=== PATIENT | male | born 1950 | race Caucasian/White ===

== ENCOUNTER → 2018-03-05 07:21 | Outpatient (CLI) | payer MEDICARE, SELFPAY ==
[2018-03-05 08:40] LABS: Alanine Aminotransferase 23 U/L (12-78); Albumin Level 3.7 gm/dL (3.4-5.0); Albumin/Globulin Ratio 1.1 (1.1-1.8); Alkaline Phosphatase 117 U/L (46-116); Anion Gap 12.6 mEq/L (5-15); Aspartate Amino Transferase 17 U/L (15-37); Bilirubin,Total 0.4 mg/dL (0.2-1.0); Blood Urea Nitrogen 12 mg/dL (7-18); Calcium 8.9 mg/dL (8.5-10.1); Carbon Dioxide 30 mmol/L (21.0-32.0); Chloride 105 mmol/L (98-107); Chol/HDL Ratio 6.8 (1-3.5); Cholesterol 177 mg/dL (140-200); Creatinine,Serum 1.07 mg/dL (0.70-1.30); Estimated Glomerular Filt Rate 69 ml/min (>60); GFR (African American) 84 ML/MIN (>60); Globulin 3.4 gm/dl (1.3-3.2); Glucose 107 mg/dL (74-106); HDL Cholesterol 26 mg/dL (27-67); LDL Cholesterol 130 mg/dL (0-130); Potassium 4.6 mmoL/L (3.5-5.1); Prostate Specific Ag, Diagnost 1.95 ng/mL (0.0-4.0); Sodium 143 mmol/L (136-145); Total Protein,Serum 7.1 gm/dL (6.4-8.2); Triglycerides 107 mg/dL (30-200); VLDL Cholesterol 21 mg/dL (0-40)
== END ==
PROVIDERS: Visit Provider Internal Medicine
DX: I10 Essential (primary) hypertension (principal); E78.5 Hyperlipidemia, unspecified; I25.10 Atherosclerotic heart disease of native coronary artery without angina pectoris; R39.12 Poor urinary stream
CPT/HCPCS: 36415; 80053; 80061; 84153

== ENCOUNTER → 2019-02-10 09:57 | Outpatient (CLI) | payer MEDICARE, SELFPAY ==
--- NOTE | 2019-02-10 10:03 | XR_ITS ---
XR chest 2V HISTORY: Hemoptysis, COPD, smoker ITS.REASON: HYMOPTYSIS, COPD ORDERING PHYSICIAN: Jackson Hodges PATIENT AGE: 68 years COMPARISON: None FINDINGS: There has been a prior CABG. There is cardiomegaly without failure. There is a left hilar mass which measures 5.8 x 4.9 x 5.9 cm in the left anterior perihilar region. This is highly suspicious for neoplasm. Chest CT with contrast suggested for further evaluation. Right lung is clear. No acute bony findings. IMPRESSION: 6 cm left perihilar mass suspicious for neoplasm. Recommend chest CT with contrast for further evaluation
== END ==
PROVIDERS: PCP Internal Medicine; Visit Provider Internal Medicine
DX: R04.2 Hemoptysis (principal)
CPT/HCPCS: 71046

== ENCOUNTER → 2019-02-15 08:30 | Outpatient (CLI) | payer MEDICARE, SELFPAY ==
[2019-02-15 08:54] LABS: Blood Urea Nitrogen 13 mg/dL (7-18); Estimated Glomerular Filt Rate 61 ml/min (>60); GFR (African American) 73 ML/MIN (>60)
--- NOTE | 2019-02-15 09:08 | CT_ITS ---
CT chest w con HISTORY: Left hilar mass, hemoptysis, smoker ITS.REASON: LT HILAR LESION,COUGHING UP BLOOD ORDERING PHYSICIAN: Jackson Hodges PATIENT AGE: 68 years COMPARISON: None TECHNIQUE: Axial images obtained following the administration of 75 mL of Optiray 350 . Sagittal, and coronal reformatted images are also generated and reviewed. All CT scans at the facility use one or more dose reduction, viz: automated exposure control, ma/kV adjustment per patient size (including targeted exams where dose is matched to indication, i.e. head), or iterative reconstruction technique. FINDINGS: There has been a prior median sternotomy. No evidence of aortic aneurysm or central pulmonary embolus. There is a 5.3 x 4.7 x 3.5 cm soft tissue mass in the lingular segment of the left upper lobe extending from the perihilar region peripherally to the chest wall with some postobstructive pneumonitis within the lingula inferiorly and medially. This is highly suspicious for neoplasm. The mass is contiguous to the chest wall anteriorly without obvious chest wall or overlying rib invasion. No hilar or mediastinal adenopathy. There is a 4 mm noncalcified nodule in the central aspect of the right upper lobe series 3 image 33. There are atelectatic changes within the right middle lobe. Calcified granulomas present in the left lower lobe. No effusions or infiltrates. No bony destructive process. Upper abdominal images show cholelithiasis IMPRESSION: 5 cm soft tissue mass within the lingular segment of the left upper lobe as described above highly suspicious for malignancy. No obvious mediastinal or hilar adenopathy. This lesion would be more readily accessible and safer for biopsy with bronchoscopy. There is a 4 mm noncalcified nodule in the right upper lobe which is indeterminate. Follow-up is suggested
== END ==
PROVIDERS: Visit Provider Internal Medicine
DX: R91.8 Other nonspecific abnormal finding of lung field (principal); R04.2 Hemoptysis
CPT/HCPCS: 36415; 71260; 82565; 84520; Q9967

== ENCOUNTER 2019-05-19 10:12 | Outpatient (CLI) | payer MEDICARE, SELFPAY ==
[2019-05-19] VITALS (10 sets, daily range): BP systolic 106–128; BP diastolic 64–82; PULSE 104–116; RESP 18–22; TEMP 36.7–36.9; O2SAT 93–98; BMI 42.1
--- NOTE | 2019-05-19 10:31 | XR_ITS ---
XR chest 2V HISTORY: ITS.REASON: SOB,FALL W/RT KNEE PAIN,LT LUNG CA, ORDERING PHYSICIAN: Jackson Hodges PATIENT AGE: 68 years COMPARISON: 02/10/2019. FINDINGS: Cardiac silhouette is stable and probably near the upper limits of normal. There is now a right subclavian Mediport catheter with the tip overlying the SVC. There is no pleural effusion or pneumothorax. The lingular opacity also described on prior CT of the chest from 02/15/2019 appears to be mildly smaller. The lateral view shows subtle haziness over the lower thoracic spine which could be area of infiltrate or atelectasis in one of the posterior lower lobes perhaps on the right side. Impression: Lingular opacity is mildly smaller. Possible subtle hazy atelectasis or infiltrate likely in the posterior inferior right lower lobe overlying the lower thoracic spine on the lateral view.
[2019-05-19 10:42] LABS: Basophils % 0.2 % (0.1-2.0); Eosinophils % 0.2 % (0.1-12.0); Hematocrit 44.2 % (42.0-52.0); Hemoglobin 13.5 g/dL (14.1-18.0); Lymphocytes # 0.2 K/mm3 (0.7-4.5); Lymphocytes % 4.7 % (10-50); Mean Corpuscular HGB Conc 30.5 g/dL (31.8-35.4); Mean Corpuscular Hemoglobin 29.9 pg (27.0-31.2); Mean Platelet Volume 10.2 fl (7.4-10.4); Monocytes # 0.3 K/mm3 (0.1-1.0); Monocytes % 6.9 % (1.7-9.3); Neutrophils # 4.2 K/mm3 (1.8-7.8); Platelet Count 124 K/mm3 (142-424); Red Blood Count 4.51 M/mm3 (4.60-6.20); Red Cell Distribution Width 15.9 % (11.5-17.5); White Blood Count 4.8 K/mm3 (4.8-10.8)
[2019-05-19 10:46] LABS: MANUAL DIFFERENTIAL MANUAL DIFFERENTIAL (MANUAL DIFF)
[2019-05-19 10:57] LABS: Anion Gap 11.5 mEq/L (5-15); Blood Urea Nitrogen 45 mg/dL (7-18); Calcium 8.5 mg/dL (8.5-10.1); Carbon Dioxide 32 mmol/L (21.0-32.0); Chloride 97 mmol/L (98-107); Creatinine,Serum 2.26 mg/dL (0.70-1.30); Estimated Glomerular Filt Rate 29 ml/min (>60); GFR (African American) 35 ML/MIN (>60); Glucose 117 mg/dL (74-106); Potassium 4.5 mmoL/L (3.5-5.1); Sodium 136 mmol/L (136-145); Troponin I 0.14 ng/ml (0.00-0.06)
[2019-05-19 11:21] LABS: Hypochromasia 2+; Lymphocytes % 6 % (10-50); Macrocytosis 2+; Monocytes % 1 % (2-9); Neutrophils % 93 % (42-76); Platelet Estimate Normal; Total Cells Counted 100
[2019-05-19 11:23] LABS: D-Dimer 1400 ng/mL (0-400)
== END 2019-05-19 17:15 | disposition home or self-care (01) ==
LOC: LAB 10:13 → INF 12:12
PROVIDERS: PCP Internal Medicine; Visit Provider Internal Medicine
DX: C34.12 Malignant neoplasm of upper lobe, left bronchus or lung (principal); R06.02 Shortness of breath; J18.9 Pneumonia, unspecified organism; R00.0 Tachycardia, unspecified; M25.562 Pain in left knee
CPT/HCPCS: 36415; 71046; 80048; 84484; 85007; 85025; 85378; 87070; 87077; 87186; 87205; 93005; 96360; 96361; 96365; 96375; J1956

== ENCOUNTER → 2019-05-23 10:55 | Outpatient (CLI) | payer MEDICARE, SELFPAY ==
[2019-05-23 11:32] LABS: Blood Urea Nitrogen 24 mg/dL (7-18); Calcium 8.8 mg/dL (8.5-10.1); Carbon Dioxide 34 mmol/L (21.0-32.0); Chloride 99 mmol/L (98-107); Creatinine,Serum 1.36 mg/dL (0.70-1.30); Estimated Glomerular Filt Rate 52 ml/min (>60); GFR (African American) 63 ML/MIN (>60); Glucose 135 mg/dL (74-106); Sodium 139 mmol/L (136-145)
== END ==
LOC: LAB 10:56 → INF 11:21
PROVIDERS: PCP Internal Medicine; Visit Provider Internal Medicine
DX: N19 Unspecified kidney failure (principal)
CPT/HCPCS: 80048; J1642

== ENCOUNTER 2019-06-28 14:08 | Outpatient (CLI) | payer MEDICARE, SELFPAY ==
--- NOTE | 2019-06-28 14:28 | XR_ITS ---
XR chest 2V HISTORY: ITS.REASON: LUNG CA,SOB,COUGH,EDEMA ORDERING PHYSICIAN: Jackson Hodges PATIENT AGE: 68 years COMPARISON: 05/19/2019 FINDINGS: There is cardiomegaly. There has been a prior CABG. There is mild pulmonary venous congestion. Asymmetric density is once again noted in the left suprahilar region consistent with mass and/or postobstructive changes which is somewhat improved compared to the previous exam. Mediport catheter is present from right subclavian approach. The remaining lungs are clear. IMPRESSION: 1. Mild CHF. 2. Persistent but improved opacification in the left suprahilar region consistent with improving hilar mass and/or obstructive pneumonitis
[2019-06-28 14:36] LABS: Basophils % 0.2 % (0.1-2.0); Eosinophils % 0.5 % (0.1-12.0); Hematocrit 39.8 % (42.0-52.0); Hemoglobin 12.4 g/dL (14.1-18.0); Lymphocytes # 0.6 K/mm3 (0.7-4.5); Lymphocytes % 9.6 % (10-50); Mean Corpuscular HGB Conc 31.2 g/dL (31.8-35.4); Mean Corpuscular Volume 99.3 fl (80-94); Mean Platelet Volume 7.8 fl (7.4-10.4); Monocytes # 0.8 K/mm3 (0.1-1.0); Monocytes % 12.2 % (1.7-9.3); Neutrophils # 5.1 K/mm3 (1.8-7.8); Neutrophils % 77.5 % (37.0-80.0); Platelet Count 164 K/mm3 (142-424); Red Blood Count 4.01 M/mm3 (4.60-6.20); Red Cell Distribution Width 23.5 % (11.5-17.5); White Blood Count 6.5 K/mm3 (4.8-10.8)
[2019-06-28 14:56] LABS: Blood Urea Nitrogen 24 mg/dL (7-18); Calcium 9.4 mg/dL (8.5-10.1); Carbon Dioxide 30 mmol/L (21.0-32.0); Chloride 92 mmol/L (98-107); Creatinine,Serum 1.52 mg/dL (0.70-1.30); Estimated Glomerular Filt Rate 46 ml/min (>60); GFR (African American) 56 ML/MIN (>60); Glucose 100 mg/dL (74-106); Sodium 130 mmol/L (136-145); Troponin I 0.03 ng/ml (0.00-0.06)
[2019-06-28 15:45] VITALS: BP 111/52; PULSE 58; RESP 22; TEMP 36.4; O2SAT 94
== END 2019-06-28 16:10 | disposition home or self-care (01) ==
PROVIDERS: PCP Internal Medicine; Visit Provider Internal Medicine
DX: R06.02 Shortness of breath (principal); R60.9 Edema, unspecified; R05 Cough; C34.90 Malignant neoplasm of unspecified part of unspecified bronchus or lung; I50.9 Heart failure, unspecified
CPT/HCPCS: 36415; 71046; 80048; 83880; 84484; 85025; 93005; 96374; J1642

== ENCOUNTER → 2019-07-05 15:12 | Outpatient (CLI) | payer MEDICARE, SELFPAY ==
--- NOTE | 2019-07-05 15:16 | CA_ITS ---
APPROVED REPORT EXAM: Comprehensive 2D, Doppler, and color-flow Echocardiogram Warehouse Driver: Rena Turner RDCS Ht: 6 ft 0 in Wt: 288lbs BSA: 2.49 BP: 110/80 mmHg Indications: Abnormal ECG, Shortness of Breath, Obesity, CAD, Hyperlipidemia, Hypertension/HDD Past history CABG Left Ventricle Left atrium is moderately enlarged, left ventricle is moderately dilated, there is severely distal ventricle systolic function, visually estimated ejection fraction 20%, there is marked hypokinesis involving the mid to distal septum, anterior, anterior apical apical and anterolateral wall. There is abnormal septal motion. Diastolic parameters are inconclusive, mitral inflow pattern is suggestive of raise left ventricular diastolic pressure. There is no left ventricular thrombus seen Right Ventricle Right atrium and right ventricle moderately enlarged with normal contractility Aortic Valve Aortic valve is thickened and calcified leaflet continue to display mobility, there is no aortic stenosis, or aortic insufficiency. Mitral Valve Mitral valve leaflets are minimally thickened, there is no mitral stenosis, there is mild mitral regurgitation, diastolic E wave with restrictive filling pattern suggestive of raise left ventricular end-diastolic pressure. Tricuspid Valve Tricuspid valve leaflets are minimally thickened, there is no tricuspid stenosis, there is mild tricuspid regurgitation, calculated right ventricular systolic pressure is 44 mmHg consistent with moderate pulmonary hypertension. Inferior vena cava was not well-visualized. Pulmonic Valve Pulmonic valve is poorly visualized. Great Vessels Aortic root is normal size. Pericardium No significant pericardial effusion noted 2D Dimensions LVOT 2.00 cm (M/F) 1.5-2.5 M-Mode Dimensions RVDd 2.60 cm (0.9-2.6) LA Diam 4.80 cm (1.9-4.0) LVDd 7.80 cm (3.5-5.7) Ao Diam 3.50 cm (2.0-3.7) LVDs 6.90 cm (3.5-5.7) AV Cusp 2.00 cm (1.5-2.6) IVSd 0.90 cm (0.6-1.1) PWd 1.00 cm (0.6-1.1) EF (Teich) 24.20% FS 11.50% EDV (Teich) 326.00 mL ESV (Teich) 247.00 mL LV Diastology E/A Ratio 3.30 Mitral Valve MV E Max Haroon. 94.80 (40-130 cm/s) MV A Velocity 28.60 (40-130 cm/s) E/A Ratio 3.30 Tricuspid Valve TR P. Velocity 284.00 cm/s RAP Estimate 10.00 mmHg RVSP 42.00 mmHg Conclusion 1. Biatrial enlargement, dilated left ventricle, severely stiff ventricular systolic function, visually estimated ejection fraction 20% with multiple segmental wall motion abnormality described above, Doppler evidence of raise left ventricular end-diastolic pressure. There is no left ventricular thrombus seen. 2. Mildly enlarged right ventricle with normal contractility. 3. Mild mitral and tricuspid regurgitation, calculated right ventricular systolic pressure is 44 mmHg consistent with moderate pulmonary hypertension. 4. No significant pericardial effusion noted. Electronically signed by : Chandu Mantilla, 07/06/2019 15:58:20
== END ==
PROVIDERS: PCP Internal Medicine; Visit Provider Internal Medicine
DX: I50.9 Heart failure, unspecified (principal); R06.02 Shortness of breath
CPT/HCPCS: 93306

== ENCOUNTER → 2019-07-21 09:09 | Outpatient (CLI) | payer MEDICARE, SELFPAY ==
[2019-07-21 09:27] LABS: Anion Gap 11.7 mEq/L (5-15); Blood Urea Nitrogen 39 mg/dL (7-18); Calcium 9.2 mg/dL (8.5-10.1); Carbon Dioxide 34 mmol/L (21.0-32.0); Chloride 84 mmol/L (98-107); Creatinine,Serum 1.83 mg/dL (0.70-1.30); Estimated Glomerular Filt Rate 37 ml/min (>60); GFR (African American) 45 ML/MIN (>60); Glucose 123 mg/dL (74-106); Potassium 4.7 mmoL/L (3.5-5.1); Sodium 125 mmol/L (136-145)
== END ==
PROVIDERS: Visit Provider Internal Medicine
DX: E87.1 Hypo-osmolality and hyponatremia (principal)
CPT/HCPCS: 36415; 80048

== ENCOUNTER → 2019-07-28 09:44 | Outpatient (CLI) | payer MEDICARE, SELFPAY ==
[2019-07-28 10:00] LABS: Basophils % 0.3 % (0.1-2.0); Eosinophils # 0.2 K/mm3 (0.0-0.4); Eosinophils % 2.9 % (0.1-12.0); Hemoglobin 11.1 g/dL (14.1-18.0); Lymphocytes # 0.7 K/mm3 (0.7-4.5); Mean Corpuscular HGB Conc 32.6 g/dL (31.8-35.4); Mean Corpuscular Hemoglobin 32.2 pg (27.0-31.2); Mean Corpuscular Volume 98.7 fl (80-94); Mean Platelet Volume 7.2 fl (7.4-10.4); Monocytes # 0.8 K/mm3 (0.1-1.0); Monocytes % 10.1 % (1.7-9.3); Neutrophils # 5.8 K/mm3 (1.8-7.8); Neutrophils % 77.8 % (37.0-80.0); Platelet Count 264 K/mm3 (142-424); Red Blood Count 3.45 M/mm3 (4.60-6.20); Red Cell Distribution Width 20.5 % (11.5-17.5); White Blood Count 7.4 K/mm3 (4.8-10.8)
[2019-07-28 10:12] LABS: Alanine Aminotransferase 29 U/L (12-78); Albumin Level 2.9 gm/dL (3.4-5.0); Albumin/Globulin Ratio 0.7 (1.1-1.8); Alkaline Phosphatase 120 U/L (46-116); Anion Gap 5.9 mEq/L (5-15); Aspartate Amino Transferase 28 U/L (15-37); Bilirubin,Total 1.1 mg/dL (0.2-1.0); Blood Urea Nitrogen 24 mg/dL (7-18); Calcium 9.7 mg/dL (8.5-10.1); Carbon Dioxide 36 mmol/L (21.0-32.0); Chloride 84 mmol/L (98-107); Creatinine,Serum 1.52 mg/dL (0.70-1.30); Estimated Glomerular Filt Rate 46 ml/min (>60); GFR (African American) 56 ML/MIN (>60); Globulin 3.9 gm/dl (1.3-3.2); Glucose 87 mg/dL (74-106); Potassium 4.9 mmoL/L (3.5-5.1); Sodium 121 mmol/L (136-145); Total Protein,Serum 6.8 gm/dL (6.4-8.2)
== END ==
PROVIDERS: Visit Provider Internal Medicine
DX: N17.9 Acute kidney failure, unspecified (principal); I50.23 Acute on chronic systolic (congestive) heart failure; C34.92 Malignant neoplasm of unspecified part of left bronchus or lung
CPT/HCPCS: 36415; 80053; 85025

== ENCOUNTER → 2019-08-04 09:16 | Outpatient (CLI) | payer MEDICARE, SELFPAY ==
[2019-08-04 09:52] LABS: Anion Gap 10.3 mEq/L (5-15); Blood Urea Nitrogen 15 mg/dL (7-18); Calcium 9.8 mg/dL (8.5-10.1); Carbon Dioxide 35 mmol/L (21.0-32.0); Chloride 91 mmol/L (98-107); Creatinine,Serum 0.92 mg/dL (0.70-1.30); Estimated Glomerular Filt Rate 82 ml/min (>60); GFR (African American) 99 ML/MIN (>60); Glucose 87 mg/dL (74-106); Potassium 5.3 mmoL/L (3.5-5.1); Sodium 131 mmol/L (136-145)
== END ==
PROVIDERS: Visit Provider Internal Medicine
DX: E87.1 Hypo-osmolality and hyponatremia (principal); N18.3 Chronic kidney disease, stage 3 (moderate)
CPT/HCPCS: 36415; 80048

== ENCOUNTER → 2019-08-11 09:49 | Outpatient (CLI) | payer MEDICARE, SELFPAY ==
[2019-08-11 11:05] LABS: Anion Gap 9.1 mEq/L (5-15); Blood Urea Nitrogen 19 mg/dL (7-18); Carbon Dioxide 32 mmol/L (21.0-32.0); Chloride 88 mmol/L (98-107); Creatinine,Serum 1.12 mg/dL (0.70-1.30); Estimated Glomerular Filt Rate 65 ml/min (>60); GFR (African American) 79 ML/MIN (>60); Glucose 69 mg/dL (74-106); Potassium 5.1 mmoL/L (3.5-5.1); Sodium 124 mmol/L (136-145)
== END ==
PROVIDERS: Visit Provider Internal Medicine
DX: C34.90 Malignant neoplasm of unspecified part of unspecified bronchus or lung (principal); E87.0 Hyperosmolality and hypernatremia
CPT/HCPCS: 36415; 80048

== ENCOUNTER → 2019-08-25 09:19 | Outpatient (CLI) | payer MEDICARE, SELFPAY ==
[2019-08-25 09:44] LABS: Anion Gap 10.2 mEq/L (5-15); Blood Urea Nitrogen 19 mg/dL (7-18); Calcium 9.5 mg/dL (8.5-10.1); Carbon Dioxide 32 mmol/L (21.0-32.0); Chloride 87 mmol/L (98-107); Creatinine,Serum 1.16 mg/dL (0.70-1.30); Estimated Glomerular Filt Rate 63 ml/min (>60); GFR (African American) 76 ML/MIN (>60); Glucose 84 mg/dL (74-106); Potassium 5.2 mmoL/L (3.5-5.1); Sodium 124 mmol/L (136-145)
== END ==
PROVIDERS: Visit Provider Internal Medicine
DX: I50.9 Heart failure, unspecified (principal)
CPT/HCPCS: 36415; 80048

== ENCOUNTER 2019-08-27 10:00 | Inpatient (IN) ==
--- NOTE | 2019-08-27 10:31 | Emergency Department Note ---
ED Disposition Clinical Impression: Skin abscess Qualifiers: Site of cutaneous abscess: extremity Site of cutaneous abscess of extremity: lower extremity Laterality: left Qualified Code(s): L02.416 - Cutaneous abscess of left lower limb Disposition: Admitted As Inpatient Condition on Discharge: Fair Time of Disposition: 08:04 - Critical Care Critical Care Time: No Attestation: On 08/27/19, the high probability of a clinically significant, sudden or life threatening deterioration of the following system(s) required my full and direct attention, intervention and personal management. The time I documented below is in addition to time spent performing reported procedures but includes the following listed in this critical care notation. Medical Decision Making - Medical Records Medical records reviewed: Yes: I reviewed the patient's medical records. - Christian Inquiry Pt receiving controlled substance: No Christian was queried for this patient: No Vital Signs: 08/27/19 10:11 08/27/19 11:14 08/27/19 12:30 Temperature 98.9 F Temperature Source Oral Pulse Rate 105 H Pulse Rate [Left Radial] 95 H 97 H Respiratory Rate 24 18 Blood Pressure Blood Pressure [Right Arm] 82/54 L 95/47 L Blood Pressure Mean [Right Arm] 63 63 Blood Pressure Source Blood Pressure Source [Right Arm] Automatic Cuff Automatic Cuff Blood Pressure Position Blood Pressure Position [Right Arm] Sitting Sitting 02 Sat by Pulse Oximetry 98 99 95 Oxygen Delivery Method Nasal Cannula Nasal Cannula Nasal Cannula Oxygen Flow Rate (LPM) 2 2 2 08/27/19 13:12 08/27/19 14:33 Temperature 100.2 F H Temperature Source Oral Pulse Rate 105 H 105 H Pulse Rate [Left Radial] Respiratory Rate 22 Blood Pressure 112/80 Blood Pressure [Right Arm] Blood Pressure Mean [Right Arm] Blood Pressure Source Automatic Cuff Blood Pressure Source [Right Arm] Blood Pressure Position Sitting Blood Pressure Position [Right Arm] 02 Sat by Pulse Oximetry Oxygen Delivery Method Nasal Cannula Oxygen Flow Rate (LPM) 2 - Lab Data Lab results reviewed: Yes: I reviewed the patient's lab results. Lab Results 08/27/19 10:20: WBC 22.4 H*, RBC 3.18 L, Hgb 10.1 L, Hct 32.9 L, MCV 103.4 H, MCH 31.7 H, MCHC 30.6 L, RDW 19.7 H, Plt Count 211, MPV 7.8, Neut % (Auto) 93.8 H, Lymph % (Auto) 1.2 L, [place] % (Auto) 4.9, Eos % (Auto) 0.0 L, Baso % (Auto) 0.0 L, Neut # (Auto) 21.0 H, Lymph # (Auto) 0.3 L, [place] # (Auto) 1.1 H, Eos # (Auto) 0.0, Baso # (Auto) 0.0, Total Counted 100, Neutrophils % (Manual) 89 H, Band Neutrophils % 2.0, Lymphocytes % (Manual) 2 L, Monocytes % (Manual) 7, Platelet Estimate Normal, RBC Morphology Not Reportable, Anisocytosis 1+, Macrocytosis 1+, ESR 92 H 08/27/19 10:20: Sodium 123 L, Potassium 5.7 H, Chloride 86 L, Carbon Dioxide 32, Anion Gap 10.7, BUN 28 H D, Creatinine 1.62 H D, Estimated Creat Clear 43, Estimated GFR 43 L, Est GFR ( Amer) 52 L D, Glucose 101, Calcium 9.3, Total Bilirubin 1.8 H, AST 19, ALT 19, Alkaline Phosphatase 118 H, C-Reactive Protein 17.3 H, Total Protein 6.9, Albumin 3.0 L, Globulin 3.9 H, Albumin/Globulin Ratio 0.8 L 08/27/19 10:20: Lactate 1.8 08/27/19 10:20: D-Dimer 458 H* 08/27/19 10:20: B-Natriuretic Peptide 3140 H 08/27/19 10:36: Specimen Source Left radial, O2 % 28, ABG pH 7.47 H, ABG pCO2 40.0, ABG pO2 105.3 H, ABG HCO3 28.3 H, ABG Total CO2 29.6 H, ABG O2 Saturation 98, ABG Base Excess 4.6 H, Nils Test Acceptable Result diagrams: 08/29/19 06:18 08/29/19 06:18 Orders (Tests/Meds): ED MEDICATIONS Discontinued Medications Generic Name Dose Route Start Last Admin Trade Name Freq PRN Reason Stop Dose Admin Acetaminophen 650 mg 08/27/19 13:14 Acetaminophen 325mg Tab PO 09/26/19 13:13 Q4HP PRN As Needed for Fever or Pain Acetaminophen 650 mg 08/27/19 14:09 Acetaminophen 325mg Tab PO 09/26/19 13:13 Q4HP PRN As Needed for Fever or Pain Albuterol Sulfate 1 - 2 puffs 08/27/19 13:20 Proventil-Hfa 90mcg/Puff Inhaler 09/26/19 13:19 Q4HP PRN BREATHING Albuterol Sulfate 1 - 2 puffs 08/27/19 14:09 Proventil-Hfa 90mcg/Puff Inhaler 09/26/19 13:19 Q4HP PRN BREATHING Albuterol/Ipratropium 3 ml 08/27/19 10:35 08/27/19 10:50 Duoneb 3ml [facility] 08/27/19 10:36 3 ml ONCE ONE Administration Albuterol/Ipratropium 3 ml 08/27/19 12:50 08/27/19 13:12 Duoneb 3ml [facility] 08/27/19 12:51 3 ml ONCE ONE Administration Apixaban 5 mg 08/28/19 09:00 08/29/19 08:11 Eliquis 5mg Tablet PO 09/27/19 08:59 5 mg BID ETIENNE Administration Bumetanide 1 mg 08/27/19 10:36 08/27/19 11:04 Bumex 1mg/4ml Vial IV 08/27/19 10:37 1 mg ONCE ONE Administration Furosemide 40 mg 08/28/19 09:00 08/29/19 08:11 Lasix 40mg Tablet PO 09/27/19 08:59 40 mg DAILY ETIENNE Administration Gabapentin 600 mg 08/27/19 21:00 Neurontin 600mg Tablet PO 09/26/19 20:59 BID ETIENNE Gabapentin 600 mg 08/27/19 21:00 08/29/19 08:12 Neurontin 600mg Tablet PO 09/26/19 20:59 600 mg BID ETIENNE Administration Piperacillin Sod/Tazobactam 100 mls @ 100 mls/hr 08/27/19 12:45 08/27/19 13:17 Sod 3.375 gm/ Sodium Chloride IV 09/10/19 13:50 100 mls/hr Q6H ETIENNE Administration Protocol Lactated Ringer's 1,000 mls @ 50 mls/hr 08/27/19 13:15 08/27/19 18:41 Lactated Ringer's 1000 Ml Bag IV 09/26/19 13:14 Not Given .Q20H ETIENNE Piperacillin Sod/Tazobactam 50 mls @ 100 mls/hr 08/27/19 21:00 Sod 3.375 gm/ Sodium Chloride IV 09/10/19 20:59 Q8H ETIENNE Protocol Vancomycin HCl 2,000 mg/ 250 mls @ 125 mls/hr 08/27/19 13:45 08/27/19 14:58 Sodium Chloride IV 09/10/19 13:44 125 mls/hr 1300 ETIENNE Administration Lactated Ringer's 1,000 mls @ 50 mls/hr 08/27/19 14:09 08/29/19 08:29 Lactated Ringer's 1000 Ml Bag IV 09/26/19 13:14 Not Given .Q20H ETIENNE Piperacillin Sod/Tazobactam 50 mls @ 100 mls/hr 08/27/19 21:00 08/29/19 05:00 Sod 3.375 gm/ Sodium Chloride IV 09/10/19 20:59 100 mls/hr Q8H ETIENNE Administration Protocol Vancomycin HCl 2,000 mg/ 250 mls @ 125 mls/hr 08/28/19 13:00 08/28/19 13:16 Sodium Chloride IV 09/11/19 12:59 125 mls/hr 1300 ETIENNE Administration Metoclopramide HCl 5 mg 08/27/19 13:20 Reglan 5mg Tablet PO 09/26/19 13:19 ACHS PRN NAUSEA/VOMITING Metoclopramide HCl 5 mg 08/27/19 14:09 Reglan 5mg Tablet PO 09/26/19 13:19 ACHS PRN NAUSEA/VOMITING Miscellaneous 1 unit 08/27/19 13:20 08/27/19 18:41 Aerochamber/Optihaler 08/27/19 13:21 Not Given ONCE ONE Miscellaneous 1 unit 08/27/19 14:09 08/27/19 22:35 Aerochamber/Optihaler MC 08/27/19 14:10 Not Given ONCE ONE Non-Formulary Medication 20 mg 08/27/19 13:20 Oxycodone Hcl PO Q6HP PRN Pain Non-Formulary Medication 25 mg 08/28/19 09:00 Naloxegol Oxalate [Movantik] PO 09/27/19 08:59 DAILY ETIENNE Oxycodone HCl 20 mg 08/27/19 14:31 08/29/19 08:13 Oxyir 5mg Tablet PO 09/26/19 14:30 20 mg Q6HP PRN Administration Severe Pain Oxycodone HCl 40 mg 08/27/19 21:00 08/28/19 20:23 Oxycontin 40mg Tablet PO 09/26/19 20:59 40 mg HS ETIENNE Administration Prochlorperazine Maleate 10 mg 08/27/19 13:20 Compazine 10mg Tablet PO 09/26/19 13:19 Q6HP PRN NAUSEA/VOMITING Prochlorperazine Maleate 10 mg 08/27/19 14:09 Compazine 10mg Tablet PO 09/26/19 13:19 Q6HP PRN NAUSEA/VOMITING Sacubitril/Valsartan 1 each 08/28/19 09:00 08/29/19 08:12 Entresto 24/26mg Tablet PO 09/27/19 08:59 1 each DAILY ETIENNE Administration Sodium Chloride 3 ml 08/27/19 14:56 Sodium Chloride 3% 15ml Neb 09/26/19 14:55 ONCE PRN INDUCE SPUTUM [employer]LECTION Temazepam 15 mg 08/27/19 21:00 Restoril 15mg Capsule PO 09/26/19 20:59 HS ETIENNE Temazepam 15 mg 08/27/19 21:00 08/28/19 20:24 Restoril 15mg Capsule PO 09/26/19 20:59 15 mg HS ETIENNE Administration Tetracycl/Hydrocort/Nystatin/Diphen 10 ml 08/27/19 13:20 Magic Mouthwash;240ml [place] PO 09/26/19 13:19 Q4HP PRN mouth discomfort Tetracycl/Hydrocort/Nystatin/Diphen 10 ml 08/27/19 14:09 Magic Mouthwash;240ml [place] PO 09/26/19 13:19 Q4HP PRN mouth discomfort ORDERS Category Date Time Status Blood Culture Stat Micro 08/27/19 10:20 Results Wound Culture and Gram Stain Stat Micro 08/27/19 10:48 Results - Radiology Data #1 Image(s): Chest Image Reviewed: Yes I reviewed the patient's radiology results Preliminary Findings: Normal/NAD General Adult HPI - General Chief complaint: Skin/Abscess/Foreign Body Stated complaint: left leg pain and swelling Time Seen by Provider: 08/27/19 10:20 Mode of Arrival: Ambulatory Source of Information: Patient, Spouse (and daughter) Limitations: No Limitations Description of Symptoms (Recalled from ER Triage Doc. by RN): c/o left leg hurting with redness going up his leg. States he seen his PCP on Wednesday for a sore on his lower left leg and today the redness has moved up the inner thigh - History of Present Illness HPI narrative: Pt has a histoyr of AFib and on Eliquiis for about a month and last week developed a blister on left leg and says he was told by Dr. Hodges to take a pin and open the blister and he did. Then saw Dr. Hodges in office and now comes to the ED with redness and drainage and swelling of both lower legs with a red streak going up left leg into the groin that is painful. He also has a history AFob amd pm Eliquiis and takes Metolazone for CHF...used to take Furosemide. ? fevers as well. Says he has been coughing up some blood and colored sputum as well. Also has COPD and on Home O2 Onset (ago): week(s) Location: chest, left, right, lower extremity Severity scale (1-10): 10 Quality: sharp Consistency: constant Relieving factors: none Associated symptoms: cough, rash - Related Data Home Medications Medication Instructions Recorded Confirmed Albuterol Sulfate [Proventil-HFA 1 - 2 puffs IH Q4HP PRN 05/19/19 08/27/19 90mcg/puff Inh] Furosemide [Furosemide 40MG tAB] 40 - 80 mg PO Q48H 05/19/19 08/28/19 Gabapentin 600 mg PO BID 05/19/19 08/27/19 Metoclopramide HCl [Reglan 5mg 5 mg PO ACHS PRN 05/19/19 08/27/19 Tablet] Potassium Chloride [Klor-con 20 20 meq PO DAILYP PRN 05/19/19 08/27/19 mEq tablet] Temazepam [Restoril 15mg capsule] 15 mg PO HS 05/19/19 08/27/19 Apixaban [Eliquis 5mg tab] 5 mg PO BID 08/27/19 08/27/19 Sacubitril/Valsartan [Entresto 24 1 each PO BID 08/27/19 08/28/19 mg-26 mg Tablet] LORazepam [Lorazepam 1mg Tablet] 1 mg PO Q6HP PRN 08/28/19 08/28/19 Montelukast Sodium [Montelukast 10 mg PO HS 08/28/19 08/28/19 10mg Tab] Oxycodone HCl 20 mg PO Q4H 08/28/19 08/28/19 Oxycodone HCl [OxyCONTIN 40mg 40 mg PO HS 08/28/19 08/28/19 tab] Previous Rx's Medication Instructions Recorded Sulfamethoxazole/Trimethoprim 1 each PO BID 8 Days #16 tab 08/29/19 [Bactrim DS tablet] cephALEXin [Keflex 500mg Cap] 500 mg PO BID 8 Days #16 cap 08/29/19 Allergies Allergy/AdvReac Type Severity Reaction Status Date / Time No Known Allergies Allergy Unverified 08/27/19 13:33 [facility] History - Hepatitis A Screen Drug use history?: No High risk sexual behaviors?: No History of sexually transmitted infection?: No Currently employed?: No Childcare worker?: No Do you have indoor plumbing?: Yes Do you have electricity?: Yes Attestation statement:: This patient has been screened for Hepatitis A risk factors. I have reviewed the patient's past medical history: Yes - Social History Alcohol Intake: never Occupational Status: retired ROS Obtained: Yes All systems reviewed & no additional complaints - Constitutional Constitutional: Reports system reviewed and no additional complaints, except as docu, Reports as per HPI - Cardiovascular Cardiovascular: Reports system reviewed and no additional complaints, except as docu, Reports as per HPI - Respiratory Respiratory: Yes system reviewed and no additional complaints, except as docu, Yes as per HPI, Yes cough, Yes coughing up blood - Musculoskeletal Musculoskeletal: Reports system reviewed and no additional complaints, except as docu, Reports as per HPI - Integumentary/Breasts Skin/Breast: Reports system reviewed and no additional complaints, except as docu, Reports as per HPI - Neurologic Neurologic: Reports system reviewed and no additional complaints, except as docu, Reports as per HPI Physical Exam - General General appearance: alert, other (SOA and cough) - Head Head exam: atraumatic - Eye Eye exam: Present: normal appearance - ENT ENT exam: Present: normal exam - Neck Neck exam: Present: normal inspection, other (increased JVD) - Chest Chest inspection: Present: normal inspection - Respiratory Respiratory exam: Present: wheezes, prolonged expiratory phase - Cardiovascular Cardiovascular exam: Present: irregular rhythm - Abdominal Exam Abdominal exam: Present: soft - Extremities Exam Extremities exam: Present: other (Patient has an ulcer on the left lower leg with surrounding cellulitis) - Neurological Exam Neurological exam: Present: alert, oriented X3 - Psychiatric Psychiatric exam: Present: normal affect - Skin Skin exam: Present: other (cellulitis both legs L>R)
[2019-08-27 11:11] LABS: ABG Base Excess 4.6 mmol/L (-2.4-2.3); ABG HCO3 28.3 mmhg (22.0-26.0); ABG Oxygen Saturation 98 % (90-100); ABG PH 7.47 mmol/L (7.35-7.45); ABG PO2 105.3 mmhg (80-100); ABG TCO2 29.6 mmhg (23-27)
[2019-08-27 11:11] LABS: Albumin/Globulin Ratio 0.8 (1.1-1.8); Anion Gap 10.7 mEq/L (5-15); Bilirubin,Total 1.8 mg/dL (0.2-1.0); Calcium 9.3 mg/dL (8.5-10.1); Globulin 3.9 gm/dl (1.3-3.2); Total Protein,Serum 6.9 gm/dL (6.4-8.2)
[2019-08-27 11:12] LABS: Oxygen 28 %
[2019-08-27 11:13] LABS: Allen's Test Acceptable
[2019-08-27 11:16] LABS: C-Reactive Protein 17.3 mg/dL (0.0-0.9)
[2019-08-27 11:30] LABS: Hematocrit 32.9 % (42.0-52.0); Hemoglobin 10.1 g/dL (14.1-18.0); Lymphocytes # 0.3 K/mm3 (0.7-4.5); Lymphocytes % 1.2 % (10-50); Mean Corpuscular HGB Conc 30.6 g/dL (31.8-35.4); Mean Corpuscular Volume 103.4 fl (80-94); Mean Platelet Volume 7.8 fl (7.4-10.4); Monocytes # 1.1 K/mm3 (0.1-1.0); Monocytes % 4.9 % (1.7-9.3); Neutrophils % 93.8 % (37.0-80.0); Platelet Count 211 K/mm3 (142-424); Red Blood Count 3.18 M/mm3 (4.60-6.20); Red Cell Distribution Width 19.7 % (11.5-17.5); White Blood Count 22.4 K/mm3 (4.8-10.8)
[2019-08-27 11:58] LABS: Erythrocyte Sedimentation Rate 92 mm/hr (0-20)
[2019-08-27 12:06] LABS: Lymphocytes % 2 % (10-50); Monocytes % 7 % (2-9); Neutrophils % 89 % (42-76); Total Cells Counted 100
[2019-08-27 12:08] LABS: Anisocytosis 1+; Macrocytosis 1+
--- NOTE | 2019-08-27 13:42 | Pharmacy Consult Notes ---
- Pharmacy Consult Date: 08/27/19 Time: 13:41 Referring provider: DR. WEST Reason for Consult:: VANCOMYCIN DOSING Allergies and ADEs:: Allergies Allergy/AdvReac Type Severity Reaction Status Date / Time No Known Allergies Allergy Unverified 08/27/19 13:33 Home Medications:: Home Medications Medication Instructions Recorded Confirmed Type Albuterol Sulfate [Proventil-HFA 1 - 2 puffs IH Q4HP PRN 05/19/19 08/27/19 History 90mcg/puff Inh] Furosemide [Furosemide 40MG tAB] 40 - 80 mg PO DAILY 05/19/19 08/27/19 History Gabapentin 600 mg PO BID 05/19/19 08/27/19 History Magic Mouthwash [Magic 10 ml PO Q4HP PRN 05/19/19 08/27/19 History Mouthwash;240mL Botttle] Metoclopramide HCl [Reglan 5mg 5 mg PO ACHS PRN 05/19/19 08/27/19 History Tablet] Naloxegol Oxalate [Movantik] 25 mg PO DAILY 05/19/19 08/27/19 History Potassium Chloride [Klor-con 20 20 meq PO DAILYP PRN 05/19/19 08/27/19 History mEq tablet] Prochlorperazine Maleate 10 mg PO Q6HP PRN 05/19/19 08/27/19 History Temazepam [Restoril 15mg capsule] 15 mg PO HS 05/19/19 08/27/19 History Oxycodone HCl [OxyCONTIN 40mg 40 mg PO HS 08/27/19 08/27/19 History tab] Height: 1.73 m Weight: 123.831 kg Laboratory Results:: Laboratory Results - last 24 hr 08/27/19 10:20: WBC 22.4 H*, RBC 3.18 L, Hgb 10.1 L, Hct 32.9 L, MCV 103.4 H, MCH 31.7 H, MCHC 30.6 L, RDW 19.7 H, Plt Count 211, MPV 7.8, Neut % (Auto) 93.8 H, Lymph % (Auto) 1.2 L, [place] % (Auto) 4.9, Eos % (Auto) 0.0 L, Baso % (Auto) 0.0 L, Neut # (Auto) 21.0 H, Lymph # (Auto) 0.3 L, [place] # (Auto) 1.1 H, Eos # (Auto) 0.0, Baso # (Auto) 0.0, Total Counted 100, Neutrophils % (Manual) 89 H, Band Neutrophils % 2.0, Lymphocytes % (Manual) 2 L, Monocytes % (Manual) 7, Platelet Estimate Normal, RBC Morphology Not Reportable, Anisocytosis 1+, Macrocytosis 1+, ESR 92 H 08/27/19 10:20: Sodium 123 L, Potassium 5.7 H, Chloride 86 L, Carbon Dioxide 32, Anion Gap 10.7, BUN 28 H D, Creatinine 1.62 H D, Estimated Creat Clear 43, Estimated GFR 43 L, Est GFR ( Amer) 52 L D, Glucose 101, Calcium 9.3, Total Bilirubin 1.8 H, AST 19, ALT 19, Alkaline Phosphatase 118 H, C-Reactive Protein 17.3 H, Total Protein 6.9, Albumin 3.0 L, Globulin 3.9 H, Albumin/Globulin Ratio 0.8 L 08/27/19 10:20: Lactate 1.8 08/27/19 10:20: D-Dimer 458 H* 08/27/19 10:20: B-Natriuretic Peptide 3140 H 08/27/19 10:36: Specimen Source Left radial, O2 % 28, ABG pH 7.47 H, ABG pCO2 40.0, ABG pO2 105.3 H, ABG HCO3 28.3 H, ABG Total CO2 29.6 H, ABG O2 Saturation 98, ABG Base Excess 4.6 H, Nils Test Acceptable Assessment and Plan - Assessment and plan all Dx Assessment and Plan for all problems:: RECOMMEND STARTING VANCOMYCIN 2000 MG Q24H AT THIS TIME. PHARMACY WILL FOLLOW DAILY AND ADJUST APPROPRIATE.
[2019-08-28 06:09] LABS: Basophils % 0.1 % (0.1-2.0); Eosinophils % 0.1 % (0.1-12.0); Hematocrit 32.9 % (42.0-52.0); Hemoglobin 9.7 g/dL (14.1-18.0); Lymphocytes # 0.5 K/mm3 (0.7-4.5); Mean Corpuscular HGB Conc 29.7 g/dL (31.8-35.4); Mean Corpuscular Volume 105.2 fl (80-94); Mean Platelet Volume 7.8 fl (7.4-10.4); Monocytes # 1.2 K/mm3 (0.1-1.0); Monocytes % 4.5 % (1.7-9.3); Neutrophils # 25.2 K/mm3 (1.8-7.8); Neutrophils % 93.3 % (37.0-80.0); Platelet Count 202 K/mm3 (142-424); Red Blood Count 3.12 M/mm3 (4.60-6.20); Red Cell Distribution Width 19.9 % (11.5-17.5)
[2019-08-28 06:17] LABS: INR 1.29 (0.9-1.1); Prothrombin Time 13.3 seconds (9.4-11.8)
[2019-08-28 06:49] LABS: Albumin Level 2.7 gm/dL (3.4-5.0); Albumin/Globulin Ratio 0.7 (1.1-1.8); Anion Gap 12.7 mEq/L (5-15); Bilirubin,Total 1.2 mg/dL (0.2-1.0); Calcium 8.9 mg/dL (8.5-10.1); Globulin 4.1 gm/dl (1.3-3.2); Phosphorous 4.1 mg/dL (2.4-4.9); Total Protein,Serum 6.8 gm/dL (6.4-8.2)
--- NOTE | 2019-08-28 07:41 | Pharmacy Consult Notes ---
[facility] Pharmacy VTE Monitoring - Patient Demographics Admission date: 08/27/19 Report Date: 08/28/19 Time: 07:40 Allergies/Adverse Reactions: Patient Allergies No Known Allergies Allergy (Unverified 08/27/19 13:33) Height: 1.73 m Weight: 120.684 kg Patient Problems: Current Active Problems Skin abscess (Acute) - VTE Risk Labs: VTE Related Lab Results Hgb 9.7 g/dL (14.1-18.0) L 08/28/19 05:48 Hct 32.9 % (42.0-52.0) L 08/28/19 05:48 Plt Count 202 K/mm3 (142-424) 08/28/19 05:48 PT 13.3 seconds (9.4-11.8) H 08/28/19 05:48 INR 1.29 (0.9-1.1) H 08/28/19 05:48 BUN 34 mg/dL (7-18) H 08/28/19 05:48 Creatinine 1.34 mg/dL (0.70-1.30) H 08/28/19 05:48 Estimated Creat Clear 91 mL/min (50-200) 08/28/19 05:48 VTE Score: 6 VTE Risk Level: Moderate Risk - Prophylaxis VTE Prophylaxis Ordered?: Yes Types of VTE Prophylaxis: TEDS Knee High Location of Applied Device: Right Leg - VTE Diagnosis Confirmed Treatment or plan recommended: Continue Current Treatment
--- NOTE | 2019-08-28 08:29 | History & Physical Report ---
*Admission Date: 08/27/19 *Chief complaint: Left leg redness and pain *History of present illness: 69-year-old white male with history of coronary disease status post CABG in the remote past with bilateral saphenous vein graft harvesting, who has been left with significant lymphedema of both lower extremities. 5 days ago he noticed a "blister" on the left [place], and was instructed- according to his report by his physician-to "pop the blister with a needle." He did so, but over the next 48 hours noticed increasing redness to the lower extremity. He reported to his physician's office. He reports that no prescriptions were given, and that over the next couple of days the redness worsened. He reported to the emergency department because of fevers, chills and shortness of breath yesterday evening. Found to meet sepsis criteria with leukocytosis, mildly elevated lactic acid and fever as well as source of infection. Placed on appropriate antibiotics for skin varsha and for sepsis and admitted to hospital for ongoing care. This morning he reports that it is already better and that he feels less short of breath after intravenous bumetanide in the emergency department. [facility] History I have reviewed the patient's past medical history: Yes Medical History: Reports:: Atherosclerotic Heart Disease, Atrial Fibrillation, Cancer (Has lung cancer, currently being treated. Record deficit.), Congestive Heart Failure, Hyperlipidemia, Hypertension Denies:: Diabetes Mellitus Type 1, Diabetes Mellitus Type 2, MRSA *Have you ever received a pneumonia vaccine?: No *Have you received a flu vaccine this season?: No Other Surgeries: Yes: Cardiac Catheterization, Open Heart Surgery Amputation: No Fractures: No - *Social History Educational Level: Attended High School Smoking Status: Former smoker Tobacco Type: cigarettes Alcohol Intake: never *Occupational Status:: retired Housing: house Household Members: spouse *Travel in the last 8 weeks: None Family Hx:: Diabetes, Hyperlipidemia, Hypertension Review of Systems - Review of Systems Review of systems:: pertinent systems reviewed and negative unless documented below Patient reports shortness of air, leg swelling and skin changes and fever as noted in HPI. Otherwise denies abdominal complaints. Denies other skin rash areas. Denies joint pain. Denies endocrine symptoms. Denies ENT symptoms. Meds Home Medications Medication Instructions Recorded Confirmed Type Albuterol Sulfate [Proventil-HFA 1 - 2 puffs IH Q4HP PRN 05/19/19 08/27/19 History 90mcg/puff Inh] Furosemide [Furosemide 40MG tAB] 40 - 80 mg PO DAILY 05/19/19 08/27/19 History Gabapentin 600 mg PO BID 05/19/19 08/27/19 History Metoclopramide HCl [Reglan 5mg 5 mg PO ACHS PRN 05/19/19 08/27/19 History Tablet] Potassium Chloride [Klor-con 20 20 meq PO DAILYP PRN 05/19/19 08/27/19 History mEq tablet] Temazepam [Restoril 15mg capsule] 15 mg PO HS 05/19/19 08/27/19 History Apixaban [Eliquis 5mg tab] 5 mg PO BID 08/27/19 08/27/19 History Oxycodone HCl 20 mg PO Q6HP PRN 08/27/19 08/27/19 History Oxycodone HCl [OxyCONTIN 40mg 40 mg PO HS 08/27/19 08/27/19 History tab] Sacubitril/Valsartan [Entresto 24 1 each PO DAILY 08/27/19 08/27/19 History mg-26 mg Tablet] Allergies Allergy/AdvReac Type Severity Reaction Status Date / Time No Known Allergies Allergy Unverified 08/27/19 13:33 Exam Vital signs and Labs for Last 24 Hours: Temp Pulse Resp BP Pulse Ox 97.7 F 99 H 20 90/55 L 97 08/28/19 08:00 08/28/19 08:00 08/28/19 08:00 08/28/19 08:00 08/28/19 08:00 Laboratory Results - last 24 hr 08/27/19 10:20: WBC 22.4 H*, RBC 3.18 L, Hgb 10.1 L, Hct 32.9 L, MCV 103.4 H, MCH 31.7 H, MCHC 30.6 L, RDW 19.7 H, Plt Count 211, MPV 7.8, Neut % (Auto) 93.8 H, Lymph % (Auto) 1.2 L, [place] % (Auto) 4.9, Eos % (Auto) 0.0 L, Baso % (Auto) 0.0 L, Neut # (Auto) 21.0 H, Lymph # (Auto) 0.3 L, [place] # (Auto) 1.1 H, Eos # (Auto) 0.0, Baso # (Auto) 0.0, Total Counted 100, Neutrophils % (Manual) 89 H, Band Neutrophils % 2.0, Lymphocytes % (Manual) 2 L, Monocytes % (Manual) 7, Platelet Estimate Normal, RBC Morphology Not Reportable, Anisocytosis 1+, Macrocytosis 1+, ESR 92 H 08/27/19 10:20: Sodium 123 L, Potassium 5.7 H, Chloride 86 L, Carbon Dioxide 32, Anion Gap 10.7, BUN 28 H D, Creatinine 1.62 H D, Estimated Creat Clear 43, Estimated GFR 43 L, Est GFR ( Amer) 52 L D, Glucose 101, Calcium 9.3, Total Bilirubin 1.8 H, AST 19, ALT 19, Alkaline Phosphatase 118 H, C-Reactive Protein 17.3 H, Total Protein 6.9, Albumin 3.0 L, Globulin 3.9 H, Albumin/Globulin Ratio 0.8 L 08/27/19 10:20: Lactate 1.8 08/27/19 10:20: D-Dimer 458 H* 08/27/19 10:20: B-Natriuretic Peptide 3140 H 08/27/19 10:36: Specimen Source Left radial, O2 % 28, ABG pH 7.47 H, ABG pCO2 40.0, ABG pO2 105.3 H, ABG HCO3 28.3 H, ABG Total CO2 29.6 H, ABG O2 Saturation 98, ABG Base Excess 4.6 H, Nils Test Acceptable 08/28/19 05:48: WBC 27.0 H*, RBC 3.12 L, Hgb 9.7 L, Hct 32.9 L, MCV 105.2 H, MCH 31.2, MCHC 29.7 L, RDW 19.9 H, Plt Count 202, MPV 7.8, Neut % (Auto) 93.3 H, Lymph % (Auto) 2.0 L, [place] % (Auto) 4.5, Eos % (Auto) 0.1, Baso % (Auto) 0.1, Neut # (Auto) 25.2 H, Lymph # (Auto) 0.5 L, [place] # (Auto) 1.2 H, Eos # (Auto) 0.0, Baso # (Auto) 0.0 08/28/19 05:48: PT 13.3 H, INR 1.29 H 08/28/19 05:48: Sodium 126 L, Potassium 4.7, Chloride 88 L, Carbon Dioxide 30, Anion Gap 12.7, BUN 34 H, Creatinine 1.34 H, Estimated Creat Clear 91, Estimated GFR 53 L, Est GFR ( Amer) 64 D, Glucose 127 H D, Calcium 8.9, Phosphorus 4.1, Magnesium 2.0, Total Bilirubin 1.2 H, AST 13 L D, ALT 16, Alkaline Phosphatase 114, Total Protein 6.8, Albumin 2.7 L, Globulin 4.1 H, Albumin/Globulin Ratio 0.7 L I & O for Last 24 hours: Intake & Output 08/25/19 08/26/19 08/27/19 08/28/19 11:59 11:59 11:59 11:59 Intake Total 884 / 884 Output Total 350 / 350 Balance 534 / 534 Weight 273 lb 266 lb 1 oz Microbiology Reports for the Last 24 Hours: Microbiology 08/27/19 11:08 Sputum - Expectorated Sputum Gram Stain - Final 08/27/19 10:48 Leg,Left Gram Stain - Final Narrative: Patient is pleasant, oriented x3. Morbidly obese. No respiratory distress at rest. Wearing oxygen-this is normal for him-and comfortable. ENT exam clear with no scleral icterus, oropharynx clear, no JVD. Lungs have rhonchi in both bases, minimal expiratory wheezing-patient states this is also his baseline. Heart rate regular with occasional ectopic beat consistent with slow A. fib. Soft murmur. Abdomen is obese-morbid obesity limits exam. Upper extremities with some bruising consistent with his anticoagulation therapy but no swelling and good distal pulses. Lower extremities are both afflicted with lymphedema, significantly up to the knees bilaterally. He has impressive saphenous vein harvesting scars with mild keloid formation on the medial aspects of both shins extending into the thigh region. The left lower extremity is red and warm up to the [place] with the denuded blister area visible on the anterior aspect of the york. There is red streaking following the saphenous grain harvesting site up into the thigh. Patient is weak in the lower extremities but is able to move extremities well. Cranial nerves are intact. Assessment and Plan (1) Lymphedema of both lower extremities Current visit: Yes Status: Acute Category: Medical Code(s): I89.0 - Lymphedema, not elsewhere classified Source of infection-PT evaluation to see if patient get in the lymphedema clinic to help with ongoing symptom control and reduce risk of further infection. (2) Cellulitis of left leg Current visit: Yes Status: Acute Category: Medical Code(s): L03.116 - Cellulitis of left lower limb Aggressive IV antibiotics, patient already seems to be improving. (3) Sepsis Current visit: Yes Status: Acute Category: Medical Code(s): A41.9 - Sepsis, unspecified organism Appropriate antibiotics and treatment for sepsis have been initiated. (4) Congestive heart failure Current visit: Yes Status: Acute Category: Medical Code(s): I50.9 - Heart failure, unspecified Probably from ischemic disease but multifactorial etiologies possible, namely A. fib and hypertension. Check echo today. Patient is responded well to diuretics with improvement of his renal function. (5) Lung cancer Current visit: No Status: Acute Qualifiers: Laterality: unspecified laterality Lung location: unspecified part of lung Qualified Code(s): C34.90 - Malignant neoplasm of unspecified part of unspecified bronchus or lung Category: Medical Code(s): C34.90 - Malignant neoplasm of unspecified part of unspecified bronchus or lung Patient has been treated for this in outside facility. Record deficit. Abnormal chest x-ray appearance noted. Continue to follow. (6) Renal insufficiency Current visit: No Status: Acute Category: Medical Code(s): N28.9 - Disorder of kidney and ureter, unspecified Acute on chronic, improving with diuretics. (7) Morbid obesity with BMI of 40.0-44.9, adult Current visit: Yes Status: Acute Category: Medical Code(s): E66.01 - Morbid (severe) obesity due to excess calories; Z68.41 - Body mass index (BMI) 40.0-44.9, adult Complicates all aspects of his care
[2019-08-28 09:09] LABS: Hypochromasia 1+; Lymphocytes % 1 % (10-50); Macrocytosis 1+; Monocytes % 1 % (2-9); Neutrophils % 97 % (42-76); Total Cells Counted 100
--- NOTE | 2019-08-28 19:35 | Cardiology Report ---
APPROVED REPORT Left Lower Extremity Venous Study for DVT. Electrochemist: CRISTAL BlairT Indications Lower Extremity Pain: Lower Extremity Edema: Left Ulcer History of Smoking Pt has wound medial mid calf x 1 week, now has swelling and red streak running from calf up thigh. Pt has had GSV removed for CABG. Risk Factors Cardiac Disease History of Smoking Medications Pt takes Eliquis. Vein Imaging CFV (L): compressive, spontaneous, phasic, augmentation FEM (L): compressive, spontaneous, phasic, augmentation POP (L): compressive, spontaneous, phasic, augmentation PTV (L): compressive, spontaneous, phasic, augmentation GSV (L): Removed Peroneals (L):compressive, spontaneous, phasic, augmentation GAS (L): compressive, spontaneous, phasic, augmentation Findings No evidence of DVT visualized left lower extremity. No evidence of SVT visualized left lower extremity. Lymph node seen left groin. Conclusion No evidence of DVT visualized left lower extremity. No evidence of SVT visualized left lower extremity. Critical Notification Physician Notified Date: 08/27/2019 Time: 12:50 Physician Name: Dr. Lopez Electronically signed by : Nils Hobson MD 08/28/2019 19:34:56
--- NOTE | 2019-08-28 20:56 | Cardiology Report ---
APPROVED REPORT EXAM: Comprehensive 2D, Doppler, and color-flow Echocardiogram Staple Laster: Adrienne Sharma CRT Ht: 5 ft 8 in Wt: 266lbs BSA: 2.31 BP: 90/55 mmHg Indications: Congestive Heart Failure, Shortness of Breath, Obesity, Dyspnea, Peripheral Edema, CAD, Hyperlipidemia, Hypertension/HDD, CABG, AFIB, LUNG CA, 2D Dimensions LVOT 1.90 cm (M/F) 1.5-2.5 M-Mode Dimensions RVDd 3.70 cm (0.9-2.6)LA Diam 5.20 cm (1.9-4.0) LVDd 6.80 cm (3.5-5.7)Ao Diam 3.80 cm (2.0-3.7) LVDs 5.70 cm (3.5-5.7)AV Cusp 2.20 cm (1.5-2.6) IVSd 1.30 cm (0.6-1.1)PWd 0.90 cm (0.6-1.1) EF (Teich) 33.10% FS 16.20% EDV (Teich) 239.00 mLESV (Teich) 160.00 mL Aortic Valve AoV Peak Haroon. 106.00 (50-130 cm/s)AO Peak GR. 4.00 mmHg Pulmonary Valve AL End VMAX 152.00 cm/s PA Accel Time 81.00 (>120 msec) Tricuspid Valve TR P. [id number] cm/sRAP Estimate 10.00 mmHg RVSP 44.00 mmHg Left Ventricle Left atrium is moderately enlarged, left ventricle is mildly dilated, there is severely reduced left ventricular systolic function, visually estimated ejection fraction 20-25%, there is marked hypo-to akinesis involving the intraventricular septum, anterior, apical and anteroapical wall. Diastolic parameters are inconclusive. Endocardial surfaces are poorly visualized. Right Ventricle Right atrium and right ventricle moderately enlarged with normal contractility. Aortic Valve Aortic valve is thickened and calcified leaflet continue to display good mobility, there is no aortic stenosis, there is mild aortic insufficiency. Mitral Valve Mitral valve leaflets are minimally thickened, there is no mitral stenosis, there is severe mitral regurgitation. Tricuspid Valve Tricuspid valve leaflets are minimally thickened, there is no tricuspid stenosis, there is mild tricuspid regurgitation, calculated right ventricular systolic pressure is 50 mmHg consistent with moderately elevated right ventricular systolic pressure. Pulmonic Valve Pulmonic valve is poorly visualized. Great Vessels Aortic root is normal size. Pericardium No significant pericardial effusion noted. Conclusion 1. Technically difficult study because of the patient fact in poor acoustic windows 2. Biatrial enlargement, dilated left ventricle, severely reduced left ventricular systolic function, visually estimated ejection fraction of 20 to 25% with multiple segmental wall motion abnormality described above. 3. Mild aortic, severe mitral and mild tricuspid regurgitation, calculated right ventricular systolic pressure is 50 mmHg consistent with moderately elevated right ventricular systolic pressure. 4. No significant pericardial effusion noted. Electronically signed by : Chandu Mantilla, 08/28/2019 20:56:00
[2019-08-29 07:11] LABS: Eosinophils # 0.1 K/mm3 (0.0-0.4); Eosinophils % 0.4 % (0.1-12.0); Hematocrit 32.5 % (42.0-52.0); Hemoglobin 9.4 g/dL (14.1-18.0); Lymphocytes # 0.5 K/mm3 (0.7-4.5); Lymphocytes % 3.4 % (10-50); Mean Corpuscular HGB Conc 28.9 g/dL (31.8-35.4); Mean Corpuscular Volume 108.5 fl (80-94); Mean Platelet Volume 7.8 fl (7.4-10.4); Monocytes # 0.9 K/mm3 (0.1-1.0); Monocytes % 5.4 % (1.7-9.3); Neutrophils # 14.4 K/mm3 (1.8-7.8); Neutrophils % 90.8 % (37.0-80.0); Platelet Count 202 K/mm3 (142-424); Red Cell Distribution Width 19.6 % (11.5-17.5); White Blood Count 15.9 K/mm3 (4.8-10.8)
[2019-08-29 07:32] LABS: Albumin Level 2.5 gm/dL (3.4-5.0); Albumin/Globulin Ratio 0.6 (1.1-1.8); Anion Gap 6.9 mEq/L (5-15); Calcium 8.6 mg/dL (8.5-10.1); Total Protein,Serum 6.5 gm/dL (6.4-8.2)
[2019-08-29 08:34] LABS: Lymphocytes % 3 % (10-50); Macrocytosis 2+; Monocytes % 5 % (2-9); Neutrophils % 88 % (42-76); Tear Drop Cells 1+; Total Cells Counted 100
--- NOTE | 2019-08-29 09:28 | Discharge Summary ---
General - General Admission date:: 08/27/19 Discharge date: 08/29/19 HPI HPI: 69-year-old white male with history of coronary disease status post CABG in the remote past with bilateral saphenous vein graft harvesting, who has been left with significant lymphedema of both lower extremities. 5 days ago he noticed a "blister" on the left [place], and was instructed- according to his report by his physician-to "pop the blister with a needle." He did so, but over the next 48 hours noticed increasing redness to the lower extremity. He reported to his physician's office. He reports that no prescriptions were given, and that over the next couple of days the redness worsened. He reported to the emergency department because of fevers, chills and shortness of breath yesterday evening. Found to meet sepsis criteria with leukocytosis, mildly elevated lactic acid and fever as well as source of infection. Placed on appropriate antibiotics for skin varsha and for sepsis and admitted to hospital for ongoing care. This morning he reports that it is already better and that he feels less short of breath after intravenous bumetanide in the emergency department. Hospital Course Hospital Course: Mr. Tubbs was admitted for cellulitis and sepsis. Initiated on broad-spectrum IV antibiotics with significant improvement in clinical status. Wound showed improvement after 24 to 36 hours of antibiotics. Seen by physical therapy for wound care and medicated wraps. Treated as well with diuresis for some mild volume overload. Responded well to this. Clinically patient improved and met criteria for discharge home. Transition oral antibiotics to complete 10 days of treatment for cellulitis of his lower extremity. Plan to initiate home health for lymphedema care. Patient will need to follow-up with his primary care physician within the next week for reassessment and optimization of fluid status. Denies chest pain, worsening shortness of breath, nausea, vomiting, diarrhea. Objective Vital signs: Temp Pulse Resp BP Pulse Ox 98.1 F 109 H 20 99/59 L 100 08/29/19 08:00 08/29/19 08:00 08/29/19 08:00 08/29/19 08:00 08/29/19 08:00 Narrative: Patient is pleasant, oriented x3, in bed on exam, Morbidly obese. No respiratory distress at rest. Wearing oxygen-at baseline-and comfortable. ENT exam clear with no scleral icterus, oropharynx clear, no JVD. Lungs have rhonchi in both bases, minimal expiratory wheezing-patient states this is also his baseline. Heart irregularly irregular. Soft murmur. Abdomen is obese-morbid obesity limits exam. Upper extremities with some bruising consistent with his anticoagulation therapy but no swelling and good distal pulses. Lower extremities with bilateral lymphedema to distal thigh, He has impressive saphenous vein harvesting scars on bilateral legs, with mild keloid formation on the medial aspects of both shins extending into the thigh region. The left lower extremity is red and warm up to the [place] with the denuded blister area visible on the anterior aspect of the [place]ork. There is red streaking following the saphenous grain harvesting site up into the thigh. Patient is weak in the lower extremities but is able to move extremities well. Cranial nerves are intact. Results Labs on day of discharge: Labs from last 24 hours 08/29/19 08/29/19 06:18 06:18 WBC 15.9 H D RBC 3.00 L Hgb 9.4 L Hct 32.5 L MCV 108.5 H MCH 31.3 H MCHC 28.9 L RDW 19.6 H Plt Count 202 MPV 7.8 Neut % (Auto) 90.8 H Lymph % (Auto) 3.4 L [place] % (Auto) 5.4 Eos % (Auto) 0.4 Baso % (Auto) 0.0 L Neut # (Auto) 14.4 H Lymph # (Auto) 0.5 L [place] # (Auto) 0.9 Eos # (Auto) 0.1 Baso # (Auto) 0.0 Total Counted 100 Neutrophils % (Manual) 88 H Band Neutrophils % 4.0 Lymphocytes % (Manual) 3 L Monocytes % (Manual) 5 Platelet Estimate Normal Macrocytosis 2+ Tear Drop Cells 1+ Sodium 127 L Potassium 3.9 Chloride 90 L Carbon Dioxide 34 H Anion Gap 6.9 BUN 31 H Creatinine 1.05 D Estimated Creat Clear 118 Estimated GFR 70 Est GFR ( Amer) 85 D Glucose 89 Calcium 8.6 Total Bilirubin 1.0 AST 18 D ALT 24 D Alkaline Phosphatase 98 Total Protein 6.5 Albumin 2.5 L Globulin 4.0 H Albumin/Globulin Ratio 0.6 L Preliminary micro results at discharge 08/27/19 10:48 Wound Culture - Preliminary Leg,Left 08/27/19 11:08 Sputum Culture - Preliminary Sputum - Expectorated Sputum DS: Diagnosis - Discharge Diagnosis (1) Lymphedema of both lower extremities Status: Acute (2) Cellulitis of left leg Status: Acute (3) Sepsis Status: Acute (4) Congestive heart failure Status: Acute (5) Lung cancer Status: Acute (6) Renal insufficiency Status: Acute (7) Morbid obesity with BMI of 40.0-44.9, adult Status: Acute Discharge Plan - Patient Discharge Instructions ACTIVITY: Continue current activity DIET: continue same diet Additional Instructions: Nursing Diagnosis: Knowledge Deficit Disease/Condition Goal(s): Education of disease process Instruction(s): Follow provider plan/instructions (See attached discharge education) Follow/up with primary care provider as instructed in discharge packet Patient Instructions: DI for Cellulitis -- Adult, Cellulitis, DI for Hyperkalemia, DI for Hyponatremia, Low-Sodium Diet, Hyponatremia-Adult, DI for Skin Abscess, Hyperkalemia - Follow up Plan Follow up with: Jackson Hodges [Primary Care Provider] - Disposition: Home Health Service Home Medications: Home Medications Medication Instructions Recorded Confirmed Type Albuterol Sulfate [Proventil-HFA 1 - 2 puffs IH Q4HP PRN 05/19/19 08/27/19 History 90mcg/puff Inh] Furosemide [Furosemide 40MG tAB] 40 - 80 mg PO Q48H 05/19/19 08/28/19 History Gabapentin 600 mg PO BID 05/19/19 08/27/19 History Metoclopramide HCl [Reglan 5mg 5 mg PO ACHS PRN 05/19/19 08/27/19 History Tablet] Potassium Chloride [Klor-con 20 20 meq PO DAILYP PRN 05/19/19 08/27/19 History mEq tablet] Temazepam [Restoril 15mg capsule] 15 mg PO HS 05/19/19 08/27/19 History Apixaban [Eliquis 5mg tab] 5 mg PO BID 08/27/19 08/27/19 History Sacubitril/Valsartan [Entresto 24 1 each PO BID 08/27/19 08/28/19 History mg-26 mg Tablet] LORazepam [Lorazepam 1mg Tablet] 1 mg PO Q6HP PRN 08/28/19 08/28/19 History Montelukast Sodium [Montelukast 10 mg PO HS 08/28/19 08/28/19 History 10mg Tab] Oxycodone HCl 20 mg PO Q4H 08/28/19 08/28/19 History Oxycodone HCl [OxyCONTIN 40mg 40 mg PO HS 08/28/19 08/28/19 History tab] Sulfamethoxazole/Trimethoprim 1 each PO BID 8 Days #16 tab 08/29/19 Rx [Bactrim DS tablet] cephALEXin [Keflex 500mg Cap] 500 mg PO BID 8 Days #16 cap 08/29/19 Rx Prescriptions/Medication Reconciliation: New Sulfamethoxazole/Trimethoprim [Bactrim DS tablet] 1 each PO BID 8 Days #16 tab cephALEXin [Keflex 500mg Cap] 500 mg PO BID 8 Days #16 cap Continued Albuterol Sulfate [Proventil-HFA 90mcg/puff Inh] 1 - 2 puffs IH Q4HP PRN PRN Reason: Shortness Of Breath Furosemide [Furosemide 40MG tAB] 40 - 80 mg PO Q48H Metoclopramide HCl [Reglan 5mg Tablet] 5 mg PO ACHS PRN PRN Reason: NAUSEA/VOMITING Gabapentin 600 mg PO BID Potassium Chloride [Klor-con 20 mEq tablet] 20 meq PO DAILYP PRN PRN Reason: WHEN TAKING LASIX Sacubitril/Valsartan [Entresto 24 mg-26 mg Tablet] 1 each PO BID Apixaban [Eliquis 5mg tab] 5 mg PO BID Oxycodone HCl 20 mg PO Q4H LORazepam [Lorazepam 1mg Tablet] 1 mg PO Q6HP PRN PRN Reason: Anxiety Montelukast Sodium [Montelukast 10mg Tab] 10 mg PO HS Temazepam [Restoril 15mg capsule] 15 mg PO HS Oxycodone HCl [OxyCONTIN 40mg tab] 40 mg PO HS - Problem Reconciliation Problems Reviewed?: Yes
== END 2019-08-29 10:51 | disposition home health service (06) | DRG 872 ==
LOC: ER 10:00 → 2ND 13:30
PROVIDERS: ADMIT Internal Medicine Adolescent Medicine; ATTEND Internal Medicine Adolescent Medicine
DX: Z68.41 Body mass index [BMI] 40.0-44.9, adult; E66.01 Morbid (severe) obesity due to excess calories; A41.9 Sepsis, unspecified organism; I89.0 Lymphedema, not elsewhere classified; C34.12 Malignant neoplasm of upper lobe, left bronchus or lung; L03.116 Cellulitis of left lower limb; I50.9 Heart failure, unspecified; I11.0 Hypertensive heart disease with heart failure; Z87.891 Personal history of nicotine dependence; Z95.1 Presence of aortocoronary bypass graft; B95.62 Methicillin resistant Staphylococcus aureus infection as the cause of diseases classified elsewhere; I48.91 Unspecified atrial fibrillation
CPT/HCPCS: 36415; 71250; 80048; 80053; 82803; 83605; 83735; 83880; 84100; 85007; 85025; 85378; 85610; 85651; 86140; 87040; 87070; 87077; 87186; 87205; 93306; 93971; 94640; 94761; 96365; 96375; 97161; 99284; J2543; J3370